=== PATIENT | male | born 1975 | race Caucasian/White ===

== ENCOUNTER 2019-08-13 00:17 | Emergency (ER) | payer OTHER, SELFPAY ==
[2019-08-13 00:17] VITALS: BP 210/137; PULSE 95; RESP 18; TEMP 36.9; O2SAT 99; BMI 30.2
--- NOTE | 2019-08-13 00:25 | ED.RN ---
THIS RN CONTACTED PT [employer] ROYAL. PHONE NUMBER [phone]. PER ROYAL PT IS NOT TO BE DRUG SCREENED.
--- NOTE | 2019-08-13 00:26 | ED.RN ---
RN [facility] WAS CALLED SINCE TEST WAS AT DISCRETION OF MANAGEMENT, BRIANNA ALLEN DECLINED TEST FOR PT
--- NOTE | 2019-08-13 00:27 | RAD_ITS ---
STUDY: X-RAY - RIGHT FOOT CLINICAL: Male, 44 years old. Smashed foot at work. Foot pain TECHNIQUE: 3 view(s) of the foot. COMPARISON: None. FINDINGS: Normal talus, calcaneus, and tarsal bones. Normal visualized subtalar, talonavicular, calcaneocuboid, tarsal and tarsometatarsal articulations. Normal metatarsi. Normal metatarsophalangeal joint of the great toe. Normal tibial and fibular sesamoid bones. Normal interphalangeal joint of the great toe. Normal phalanges of the great toe. Normal second through fifth metatarsophalangeal joints. Normal interphalangeal joints and phalanges of the lesser toes. The soft tissue structures demonstrate soft tissue swelling over the dorsal aspect of the foot at the level of the metatarsals. No acute fracture visualized. RAD/Foot min 3 Views IMPRESSION: Dorsal soft tissue swelling of the foot without evidence for acute fracture. Electronically Signed: Maritocrow Allyson, at 0:51 EST Tel , Service support ,
--- NOTE | 2019-08-13 00:27 | ED.VIS.GEN ---
History of Present Illness Chief Complaint: Lower Extremity Injury Informant: Patient Narrative: Stated he injured his right foot at work. He had 100 pound object found to his foot just prior to arrival. No home treatment. Able to walk but with a limp. No previous injury to the area. Current severity is moderate. Does not want any pain medicine at that time. Denies any numbness or tingling. Past Medical History - Allergies and Home Meds Allergies/Adverse Reactions: Allergies No Known Allergies Allergy (Verified 08/13/19 00:21) Primary Care Physician: Shahriar Chahal MD [STAFF PHYSICIAN] - Prior records reviewed: Yes Past Medical History: - - Reviewed Surgical History: - - Reviewed Lives: With Family Smoking Status: Never smoker Alcohol: None Drugs: None Review of Systems General: Denies: Chills, Fever, Sweats Eyes: Denies: Visual changes - bilaterally, Diplopia ENT: Denies: Rhinorrhea, Sore throat Cardiovascular: Denies: Chest pain, Palpitations Respiratory: Denies: Dyspnea, Cough, Dyspnea on exertion Gastrointestinal: Denies: Abdominal pain, Nausea, Vomiting, Diarrhea, Melena, Hematochezia Genitourinary: Denies: Dysuria, Hematuria, Frequency Musculoskeletal: Reports: Extremity Pain - See HPI. Denies: Back pain Skin: Denies: Rash, Wounds Neurological: Denies: Headache, Weakness, Numbness Physical Exam Vital Signs/Narrative: Vital Signs Temp Pulse Resp BP Pulse Ox 08/13/19 00:17 98.4 F 95 18 210/137 H 99 General: Well nourished, Well developed, No Acute Distress Head: Normocephalic, Atraumatic Eyes: Perrl, EOMI ENT: Moist mucous membranes, No rhinorrhea Neck: Supple, Nontender Cardiovascular: Regular rate, Regular rhythm, No murmurs Respiratory: No distress, CTA bilaterally, Chest nontender Abdomen: Soft, Nontender, Nondistended, Normal bowel sounds Back: Nontender, Normal Inspection Extremities: Tenderness - The distal second and third metatarsal soft tissue swelling and bruising measuring 2 inches x 2 inches. Decreased range of motion secondary to pain. Normal posterior tibialis pulses with Doppler. Negative for: Nontender, No edema Skin: - - Mild contusion and redness over the distal second and third metatarsal. Negative for: Normal color, No rash Neurological: Alert, Oriented x3, Cranial nerves II-XII grossly intact, Normal Strength, Normal Sensation Psychological: Normal affect, Normal Mood Diagnostic/Tx/Re-eval - Medical Decision Making Patient given ice pack. Did not want anything for pain. X-ray of the foot obtained. X-ray is negative for fracture. Given a postop shoe and Alok wrap for his foot contusion. Will be given work restrictions and will follow-up. ED Disposition - Plan for ED Patient: Disposition: Home or Assisted Living Diagnosis: Foot contusion Instructions: CONTUSION, Foot Referrals: [facility] [GROUP OF PHYSICIANS] -
[2019-08-13 01:12] VITALS: BP 158/112; PULSE 80; RESP 16; O2SAT 98
== END 2019-08-13 01:13 | disposition home or self-care (01) ==
PROVIDERS: Emergency Provider Emergency Medicine
DX: S90.31XA Contusion of right foot, initial encounter (principal); W20.8XXA Other cause of strike by thrown, projected or falling object, initial encounter; Y93.89 Activity, other specified; Y92.89 Other specified places as the place of occurrence of the external cause; Y99.0 Civilian activity done for income or pay
CPT/HCPCS: 73630; 99283